=== PATIENT | female | born 1950 | race Caucasian/White ===

== ENCOUNTER 2018-06-03 08:01 | Day surgery (SDC) | payer MEDICARE, BC ==
[2018-06-03] MEDS ORDERED: BUPIVACAINE/EPI 0.5% 10 ML SOL INFIL ONE (08:02)
[2018-06-03] MEDS ORDERED: MIDAZOLAM 2 MG/2 ML SOL ONE (08:26)
[2018-06-03] MEDS ORDERED: PROPOFOL 500 MG/50 ML EMU IV ONE ×3 (08:26→12:28)
[2018-06-03] MEDS ORDERED: FENTANYL 100MCG/2ML SOL ONE (08:27)
[2018-06-03] MEDS ORDERED: CEFAZOLIN SODIUM 1 GM PDS ONE (10:03)
[2018-06-03 13:48] VITALS: O2SAT 93
[2018-06-03 14:58] VITALS: BP 130/78; PULSE 68; RESP 18; TEMP 97.8
== END 2018-06-03 15:40 | disposition home or self-care (01) | DRG 556 ==
LOC: SURG 08:01
PROVIDERS: ATTEND Orthopaedic Surgery
DX: M79.644 Pain in right finger(s) (principal); M19.041 Primary osteoarthritis, right hand
CPT/HCPCS: 73140; 76000; J0690; J2250; J3010; A6402; J2704

== ENCOUNTER → 2018-07-15 | Outpatient (CLI) | payer MEDICARE, BC | END | disposition home or self-care (01) | DRG 950 | LOC: CONVCARE 13:29 | PROVIDERS: ATTEND Orthopaedic Surgery | DX: Z51.89 Encounter for other specified aftercare (principal) | CPT/HCPCS: 73140 ==

== ENCOUNTER 2018-10-07 09:36 | Outpatient (CLI) | payer MEDICARE, BC | END 2018-10-07 09:37 | disposition home or self-care (01) | DRG 561 | LOC: CONVCARE 09:36 | PROVIDERS: ATTEND Orthopaedic Surgery | DX: Z47.89 Encounter for other orthopedic aftercare (principal); Z98.890 Other specified postprocedural states | CPT/HCPCS: 73130 ==